=== PATIENT | female | born 1995 | race African-American/Black ===

== ENCOUNTER 2017-07-21 21:26 | Emergency (ER) | payer SELFPAY ==
[~2017-07-21 21:26] MED LIST: AMOX500T PO; MACR100C2 PO
[2017-07-21 21:37] VITALS: BP 119/61; PULSE 98; RESP 18; TEMP 99.3; O2SAT 100
[2017-07-21] MEDS ORDERED: predniSONE 50 MG TAB PO ONE (23:00)
[2017-07-21] MEDS ORDERED: PRED50 PO (23:07)
--- NOTE | 2017-07-21 23:07 | PD ---
HPI Chief Complaint: Skin Problem Time Seen by Provider: 22:51 Travel History International Travel<30 days: No Contact w/Intl Traveler<30days: No Traveled to known affect area: No History of Present Illness HPI 22-year-old female here for evaluation of pruritic rash that she believes may be from bedbug bites. The patient states that her and her friends rented a house in [place] over the weekend. They saw bedbugs in the rental unit. 2 days ago the patient noticed pustules on her chest and back, and yesterday she began to notice some on her arms. She states that they are pruritic. She has been taking Benadryl, Claritin, applying hydrocortisone cream, calamine lotion, and vitamin E oil. She is concerned because her symptoms do not seem to be improving, and that the pustules on her left forearm seem to be increasing in size. No tongue or lip swelling. No drooling or stridor. No intraoral lesions. No fevers or chills. PFSH Past Medical History Medical History: Denies Significant Hx Immunizations Current: No ?: Not LMP: 06/30/17 : 0 Past Surgical History Surgical History: No Previous Surgery Social History Alcohol Use: No Tobacco Use: No Substance Use: No Allergies-Medications (Allergen,Severity, Reaction): Coded Allergies: pollen extracts (Verified Allergy, Intermediate, 07/21/17) Reported Meds & Prescriptions Reported Meds & Active Scripts Active No Active Prescriptions or Reported Medications Review of Systems Except as stated in HPI: all other systems reviewed are Neg Physical Exam Narrative GENERAL: Well-developed, well-nourished, comfortable, no apparent distress. SKIN: Pustules/papules of various sizes on chest, back, and bilateral arms with only a few pustules on her legs. There is no warmth. No fluctuance or induration. Pustules on her left forearm are significantly larger than the rest of the pustules. Negative Nikolsky sign. No intraoral lesions. No rash or subcutaneous tracking in the webspaces between her fingers. HEAD: Atraumatic. Normocephalic. EYES: Pupils equal and round. No scleral icterus. No injection or drainage. ENT: No nasal bleeding or discharge. Mucous membranes pink and moist. No intraoral lesions. No tongue or lip swelling. No drooling or stridor. NECK: Trachea midline. No JVD. CARDIOVASCULAR: Regular rate and rhythm. RESPIRATORY: No accessory muscle use. Clear to auscultation. Breath sounds equal bilaterally. MUSCULOSKELETAL: No obvious deformities. No clubbing. No cyanosis. No edema. NEUROLOGICAL: Awake and alert. No obvious cranial nerve deficits. Motor grossly within normal limits. Normal speech. PSYCHIATRIC: Appropriate mood and affect; insight and judgment normal. Data Data Last Documented VS Vital Signs Date Time Temp Pulse Resp B/P (MAP) Pulse Ox O2 Delivery O2 Flow Rate FiO2 07/21/17 21:37 99.3 98 18 119/61 (80) 100 Orders Orders Prednisone (Deltasone) (07/21/17 23:00) [facility] Medical Decision Making Medical Screen Exam Complete: Yes Emergency Medical Condition: Yes Differential Diagnosis Insect bites, chickenpox, allergic reaction, poison essence/poison oak, contact dermatitis Narrative Course Vital signs reviewed. Patient has several papules/pustules on her chest, back, bilateral upper extremities with only a few on her lower extremities. These appear to be in various sizes, they do not appear to be infected. There are no intraoral lesions. She has not yet had chickenpox and does not believe she was vaccinated for them. Although these do not appear to be classic for chickenpox , it is on the differential. She did stay at a rental house this past week where her and her friends saw bedbugs. Patient's lesions are more likely from bedbugs or insect bites. She has been applying calamine lotion, hydrocortisone cream, vitamin E oil, Benadryl, and Claritin. Plan is to start her on prednisone for 5 days and have her continue the current home therapies. PMD follow-up this week. She was advised on when to return to the emergency department. She verbalizes understanding and agreement with plan. Diagnosis Primary Impression: Insect bites Qualified Codes: W57.XXXA - Bitten or stung by nonvenomous insect and other nonvenomous arthropods, initial encounter Referrals: Primary Care Physician 3 days Additional Instructions: Follow-up with a primary care physician this week. Continue current home therapy. Take prednisone as prescribed. Return to the emergency department for worsening symptoms or any other concerns as discussed. Scripts Prednisone (Prednisone) 50 Mg Tab 50 MG PO DAILY for 4 Days, #4 TAB 0 Refills Prov: Roshan Hrao MD 07/21/17 Disposition: 01 DISCHARGE HOME Condition: Stable Roshan Haro MD Jul 21, 2017 23:07
== END 2017-07-21 23:17 | disposition home or self-care (01) ==
LOC: NEPD 21:26
DX: R23.8 Other skin changes (principal); W57.XXXA Bitten or stung by nonvenomous insect and other nonvenomous arthropods, initial encounter
CPT/HCPCS: 99283; J7512